=== PATIENT | male | born 1945 ===

== ENCOUNTER 2023-12-30 13:37 | Outpatient (REF) | payer MEDICARE, SELFPAY ==
[2023-12-30 13:36] LABS: Bilirubin Negative (Negative); Blood Trace-intact (Negative); Clarity Clear (Clear); Glucose Negative (Negative); Ketones Negative (Negative); Leukocyte Esterase Negative (Negative); Nitrite Negative (Negative); Urobilinogen 0.2 mg/dL (Up to 0.2)
[2023-12-30 13:44] LABS: Bacteria Negative HPF (Negative); C & S Indicated? No; Casts Negative LPF (Negative); Crystals Negative HPF (Negative); Epithelial Cells Rare HPF (Negative); Mucus Negative (Negative); RBC 0-2 HPF (0-2); WBC Negative HPF (0-5)
== END 2023-12-30 13:38 | disposition home or self-care (01) ==
LOC: LBN 13:37
PROVIDERS: Referring Provider Nurse Practitioner; Visit Provider Nurse Practitioner
DX: R31.29 Other microscopic hematuria (principal); C61 Malignant neoplasm of prostate
CPT/HCPCS: 81003; 81015